=== PATIENT | male | born 1975 | race Caucasian/White ===

== ENCOUNTER 2025-08-22 05:26 | Emergency (ER) | payer OTHER ==
[2025-08-22] MEDS ORDERED: Sodium Chloride 0.9% 10 ML Syringe FLUSH PRN (05:32)
[2025-08-22] MEDS: Diltiazem 25 MG/5 ML SDV IVPUSH ONE (05:39)
[2025-08-22 05:41] LABS: BASOPHILS ABSOLUTE AUTO 0.03 K/uL (0.02-0.10); BASOPHILS PERCENT AUTO 0.3 % (0.0-0.5); EOSINOPHILS ABSOLUTE AUTO 0.02 K/uL (0.04-0.40); EOSINOPHILS PERCENT AUTO 0.2 % (1.0-5.0); LYMPHOCYTES ABSOLUTE AUTO 1.78 K/uL (1.50-4.00); LYMPHOCYTES PERCENT AUTO 16.2 % (20.0-40.0); MEAN PLATELET VOLUME 8.8 fL (6.0-10.0); MONOCYTES ABSOLUTE AUTO 0.65 K/uL (0.20-0.80); MONOCYTES PERCENT AUTO 5.9 % (3.0-10.0); NEUTROPHILS ABSOLUTE AUTO 8.53 K/uL (2.00-7.50); NEUTROPHILS PERCENT AUTO 77.4 % (45.0-70.0); PLATELET COUNT,PLT 297 K/uL (150-400); RED BLOOD CELL COUNT 4.82 M/uL (4.50-6.50); RED CELL DISTRIBUTION WIDTH 12.1 % (11.0-16.0); WHITE BLOOD CELL COUNT,WBC 11.0 K/uL (4.0-11.0)
[2025-08-22] MEDS: Diltiazem 50 MG/10 ML SDV IVPUSH ONE (05:56)
[2025-08-22 06:03] LABS: A/G RATIO 1.3 (0.8-2.0); ALANINE AMINOTRANSFERASE,ALT 247.0 U/L (12-78); ASPARTATE AMNIOTRANSFERASE,AST 103.0 U/L (15-37); BILIRUBIN TOTAL 2.6 mg/dL (0.0-1.0); BLOOD UREA NITROGEN,BUN 8.0 mg/dL (8-26); CARBON DIOXIDE,CO2 19.1 mmol/L (21.0-32.0); CHLORIDE,CL 91.0 mmol/L (98-107); CREATININE 0.75 mg/dL (0.70-1.30); EST CRCL DRUG DOSING (CG) 110.17 mL/min; ESTIMATED GFR 110.0 mL/min (>60); GLUCOSE RANDOM 150.0 mg/dL (74-100); POTASSIUM,K 3.8 mmol/L (3.5-5.1); PROTEIN TOTAL,TP 8.2 g/dL (6.4-8.2); SODIUM,NA 131.0 mmol/L (136-145); TROPONIN I HIGH SENSITIVITY 11.3 pg/ml (<=60.4)
[2025-08-22] MEDS: Magnesium Sulfate 2 GM/50 mL 2 GM in Premix Bag 1 BAG IV ONE (06:10)
[2025-08-22] MEDS: Ondansetron 4 MG/2 ML SDV IVPUSH ONE (07:10)
== END 2025-08-22 16:15 | disposition home or self-care (01) ==
LOC: LB.ED 05:26
DX: I48.91 Unspecified atrial fibrillation (principal); E83.42 Hypomagnesemia; R74.01 Elevation of levels of liver transaminase levels; F10.10 Alcohol abuse, uncomplicated; F41.9 Anxiety disorder, unspecified; I10 Essential (primary) hypertension; Z79.899 Other long term (current) drug therapy; Y90.9 Presence of alcohol in blood, level not specified
CPT/HCPCS: 36415; 80053; 83735; 84484; 85025; 93005; 96365; 96366; 96367; 96375; 96376; 99285-25; A9270-GY; J1163; J2405; J3475; J3490; J7030